=== PATIENT | female | born 1985 | race African-American/Black ===

== ENCOUNTER 2016-08-20 22:54 | Inpatient (IN) | payer OTHER ==
[~2016-08-20] VITALS: Ht 157.5 cm; Wt 71.2 kg
[2016-08-20 23:14] VITALS: BP 108/64
[2016-08-21] VITALS (19 sets, daily range): BP systolic 91–132; BP diastolic 44–76
[2016-08-21 00:46] LABS: EOSINOPHIL (%) 2.8 % (0-5); EOSINOPHIL COUNT 0.2 K/uL (0-0.3); HEMATOCRIT 31.4 % (36.0-46.0); IMMATURE GRANULOCYTE (%) 0.4 % (0.0-0.7); INSTRUMENT ABS NEUTROPHIL CT 3.9 K/uL; LYMPHOCYTE COUNT 2.1 K/uL (1.0-2.8); MCH 30.3 PG (29.0-34.0); MCHC 32.2 G/DL (30.0-36.0); MCV 94.3 FL (83-99); MEAN PLAT.VOLUME 10.1 uM^3 (9.5-12.4); MONOCYTE (%) 8.3 % (3-12); MONOCYTE COUNT 0.6 K/uL (0-0.8); NEUTROPHIL (%) 57.6 % (45-76); NEUTROPHIL COUNT 3.9 K/uL (1.8-6.4); PLATELET COUNT 207 K/uL (156-360); RBC DIS.WIDTH-CV 14.6 % (11.8-14.6); RBC DIS.WIDTH-SD 50.4 % (39-53); RED BLOOD COUNT 3.33 M/uL (3.80-5.20); WHITE BLOOD COUNT 6.8 K/uL (4.1-10.2)
[2016-08-21] MEDS ORDERED: PRENATAL TABLE1 EAC3 PO (01:53)
[2016-08-22 07:13] LABS: EOSINOPHIL (%) 1.2 % (0-5); EOSINOPHIL COUNT 0.1 K/uL (0-0.3); HEMATOCRIT 28.9 % (36.0-46.0); IMMATURE GRANULOCYTE (%) 0.4 % (0.0-0.7); INSTRUMENT ABS NEUTROPHIL CT 5.8 K/uL; LYMPHOCYTE COUNT 2.3 K/uL (1.0-2.8); MCH 30.6 PG (29.0-34.0); MCHC 32.5 G/DL (30.0-36.0); MCV 94.1 FL (83-99); MONOCYTE COUNT 0.6 K/uL (0-0.8); NEUTROPHIL (%) 65.4 % (45-76); NEUTROPHIL COUNT 5.8 K/uL (1.8-6.4); PLATELET COUNT 192 K/uL (156-360); RBC DIS.WIDTH-CV 14.7 % (11.8-14.6); RBC DIS.WIDTH-SD 51.3 % (39-53); RED BLOOD COUNT 3.07 M/uL (3.80-5.20); WHITE BLOOD COUNT 8.9 K/uL (4.1-10.2)
[2016-08-22 07:30] VITALS: BP 92/56
[2016-08-22 15:30] VITALS: BP 121/67
[2016-08-22 22:50] VITALS: BP 110/64
[2016-08-23 07:09] VITALS: BP 113/59
[2016-08-23] MEDS ORDERED: IBUPROFEN800 MG PO (09:54)
[2016-08-23] MEDS ORDERED: PRENATAL TABLE1 EAC3 PO (09:54)
== END 2016-08-23 13:30 | disposition home or self-care (01) | DRG 775 ==
LOC: LDRP-OP → 2WEST 22:55 → LDRP-OP 09-12 17:19
PROVIDERS: Advanced Practice Midwife
DX: O48.0 Post-term pregnancy (principal); O70.0 First degree perineal laceration during delivery; O63.9 Long labor, unspecified; O99.02 Anemia complicating childbirth; D50.9 Iron deficiency anemia, unspecified; Z37.0 Single live birth; Z3A.41 41 weeks gestation of pregnancy
CPT/HCPCS: 85025; 86880; 86900; 86901; G0378; J2405; J7120

== ENCOUNTER 2017-01-20 21:27 | Emergency (ER) | payer OTHER ==
[~2017-01-20] VITALS: Ht 160 cm; Wt 65.6 kg
[~2017-01-20 21:27] MED LIST: IBUPROFEN800 MG PO; PRENATAL TABLE1 EAC3 PO
[2017-01-20] MEDS ORDERED: MOTRIN600 MG PO (22:38)
[2017-01-20 23:42] VITALS: BP 130/73
== END 2017-01-20 23:43 | disposition home or self-care (01) ==
LOC: EME 21:27
DX: S50.12XA Contusion of left forearm, initial encounter (principal); V49.10XA Passenger injured in collision with unspecified motor vehicles in nontraffic accident, initial encounter
CPT/HCPCS: 73090; 99281; 99283